=== PATIENT | female | born 2000 | race Hispanic/Latino ===

== ENCOUNTER 2021-07-26 13:36 | Outpatient (CLI) | payer OTHER | END 2021-07-26 13:37 | disposition home or self-care (01) | LOC: BICULT 13:36 | PROVIDERS: ATTEND Family Medicine | DX: O09.92 Supervision of high risk pregnancy, unspecified, second trimester (principal); Z3A.20 20 weeks gestation of pregnancy | CPT/HCPCS: 76805 ==